=== PATIENT | female | born 1995 ===

== ENCOUNTER 2018-01-18 14:42 | Emergency (ER) | payer MEDICAID, OTHER ==
[2018-01-18] MEDS ORDERED: Naproxen 550 mg Tab PO STA (15:15)
[2018-01-18] MEDS ORDERED: Naproxen 550 mg Tab PO ONE (15:31)
--- NOTE | 2018-01-18 16:02 | C.PDOC ---
History Of Present Illness 22-year-old female, presents to the emergency department with complaints if lower back pain s/p mechanical fall yesterday. patient states she was in the shower yesterday when she fell and sustained injury to lower back. Patient denies any other injury or trauma. No numbness/weakness. Time Seen by Provider: 01/18/18 15:03 Chief Complaint (Nursing): Back Pain History Per: Patient History/Exam Limitations: no limitations Past Medical History Reviewed: Historical Data, Nursing Documentation, Vital Signs Vital Signs: Last Vital Signs Temp 98.2 F 01/18/18 17:01 Pulse 59 L 01/18/18 17:01 Resp 20 01/18/18 17:01 BP 107/72 01/18/18 17:01 Pulse Ox 100 01/18/18 17:01 Family History: States: No Known Family Hx - Social History Hx Alcohol Use: No Hx Substance Use: No - Immunization History Hx Tetanus Toxoid Vaccination: No Hx Influenza Vaccination: No Hx Pneumococcal Vaccination: No Review Of Systems Respiratory: Negative for: Shortness of Breath Gastrointestinal: Negative for: Vomiting Musculoskeletal: Positive for: Back Pain. Negative for: Neck Pain Neurological: Negative for: Weakness, Numbness, Headache, Dizziness Physical Exam - Physical Exam Appears: Non-toxic, No Acute Distress Skin: Normal Color, Warm, Dry, No Rash Head: Atraumatic, Normacephalic Eye(s): bilateral: PERRL Nose: Normal Oral Mucosa: Moist Lips: Normal Appearing Neck: Normal ROM, Supple Chest: Symmetrical Cardiovascular: Rhythm Regular, No Friction Rub, No Murmur Respiratory: Normal Breath Sounds, No Accessory Muscle Use, No Rales, No Rhonchi Gastrointestinal/Abdominal: Soft, No Tenderness Back: No CVA Tenderness, No Vertebral Tenderness, Paraspinal Tenderness (Lumbar , diffuse) Extremity: Normal ROM, Capillary Refill (<2 seconds), No Deformity, No Swelling Pulses: Left Dorsalis Pedis: Normal, Right Dorsalis Pedis: Normal Neurological/Psych: Oriented x3, Normal Speech, Normal Motor, Normal Sensation Gait: Steady ED Course And Treatment O2 Sat by Pulse Oximetry: 99 (RA) Pulse Ox Interpretation: Normal Progress Note: XR SPINE ordered and reviewed. Patient treated with Naproxen and Flexeril. On re-evaluation, patient is resting comfortably, with improvement of back pain. Patient remains afebrile, with no bony tenderness, extremity numbness or weakness, or abdominal pain. Patient is ambulatory in the emergency department with no signs of discomfort. Patient was advised to follow up with physician/clinic in 1-2 days. Medical Decision Making Medical Decision Making: On re-exam the patient reports improvement of symptoms. Lungs are CTA, heart is RRR, abdomen is soft, non-tender and tolerating PO well. Ambulatory in the ED with steady gait. Follow up with the medical doctor within 1-2 days. Return if worsened. Disposition - Disposition Referrals: [facility] [Outside] Disposition: HOME/ ROUTINE Disposition Time: 16:51 Condition: GOOD Additional Instructions: Follow up with the medical doctor within 1-2 days. Return if worsened. Prescriptions: Cyclobenzaprine [Cyclobenzaprine HCl] 10 mg PO BID #14 tab Naproxen [Naprosyn] 500 mg PO BID #20 tab Instructions: Low Back Pain in Adults Forms: [facility] (Iranian), Work Excuse - Clinical Impression Clinical Impression: Contusion of back - Scribe Statement The provider has reviewed the documentation as recorded by the Scribe (Ariane Burroughs) All medical record entries made by the Scribe were at my direction and personally dictated by me. I have reviewed the chart and agree that the record accurately reflects my personal performance of the history, physical exam, medical decision making, and the department course for this patient. I have also personally directed, reviewed, and agree with the discharge instructions and disposition.
--- NOTE | 2018-01-18 16:35 | RAD ---
PROCEDURE: Radiographs of the Lumbar Spine. HISTORY: low back injury COMPARISON: None available. FINDINGS: BONES: Alignment appears satisfactory. No listhesis. No acute displaced fracture identified. DISC SPACES: Unremarkable. OTHER FINDINGS: IUD. IMPRESSION: No acute displaced fracture dislocation identified. IUD.
[2018-01-18 17:01] VITALS: BP 107/72; PULSE 59; RESP 20; TEMP 98.2
[2018-01-18 23:00] VITALS: O2SAT 99
== END 2018-01-18 17:01 | disposition home or self-care (01) ==
LOC: C.ER 14:42
DX: S30.0XXA Contusion of lower back and pelvis, initial encounter (principal); W18.2XXA Fall in (into) shower or empty bathtub, initial encounter; Y93.E1 Activity, personal bathing and showering; Y92.002 Bathroom of unspecified non-institutional (private) residence as the place of occurrence of the external cause